=== PATIENT | male | born 1985 | race Two or more races ===

== ENCOUNTER 2025-02-26 15:31 | Emergency (ER) | payer SELFPAY ==
[2025-02-26 15:54] VITALS: BP 157/104; PULSE 108; RESP 18; TEMP 37.2; O2SAT 97; BMI 38.0
--- NOTE | 2025-02-26 16:06 | EDNOTE_ITS ---
ED Dental RME/HPI General Chief complaint: Dental/Oral/Throat Stated complaint: Right cheek swelling X 2 days, broken teeth Time Seen by Provider: 02/26/25 15:35 Arrival date/time: 02/26/25 15:31 RME / HPI RME / HPI Narrative: 39-year-old male patient was brought in for evaluation regarding right lower premolar dental cavity, and gumline swelling, associated with broken teeth and tenderness. Has been ongoing for the last 2 days. Patient told me that he had no insurance at this time and cannot see a dentist. Denies any fever denies any difficulty swallowing denies any other complaint. Able to open the mouth fully without any limitation Related Data Previous Rx's ?Medication ?Instructions ?Recorded Cyclobenzaprine * (FLEXERIL *) 10 mg PO Q8HR PRN muscl e spasm 04/08/14 #15 tabs amoxicillin 875 mg-potassium 1 tab PO BID #14 tabs clavulanate 125 mg tablet ibuprofen 800 mg tablet 800 mg PO Q8H PRN pain #30 t abs 02/26/25 Allergies Allergy/AdvReac Type Severity Reaction Status Date / Time NKA* Allergy Uncoded 02/26/25 15:38 Review of Systems Review of Systems Narrative Review of Systems: Review of system reviewed and within normal limits except mentioned in HPI ED Exam Narrative Physical exam: VITAL SIGNS: Reviewed. GENERAL APPEARANCE: Alert and interactive, follows commands, no acute distress, HEAD AND FACE: Non-traumatic. ENT: PERRL, pink conjunctivitis, eyelid no trauma, Mucous membrane moist. Right lower premolar with dental cavity and gumline swelling nonfluctuant with tenderness, uvula in the midline tonsils of the large NECK: Supple, nontender, no nuchal rigidity. CHEST: No tenderness, no crepitus, no paradoxical movement, no retractions. LUNGS: Clear, well ventilated, symmetric, no rales, no wheezing, no ronchi, no stridor, good breath sounds bilaterally. HEART: Regular rate, regular rhythm, no murmur, no gallops. ABDOMEN: Soft, positive bowel sounds, nondistended, no guarding, nontender, no rebound, no masses, RECTAL: Deferred. GENITAL: Deferred. NEUROLOGICAL: Gross motor function intact sensory function intact, Appropriate for age. MUSCULOSKELETAL: low back nontender, full range of motion. EXTREMITIES: Nontender, full range of motion. SKIN: Color pink, dry, no rash, no lacerations, no abrasions, no contusions. LYMPHATICS: Deferred. Course Quality Measures none Orders Category Date Time Status Amoxicillin/Pot Clav 875 [Augmentin 875] Med 02/26/25 16:05 Discontinued 1 tab PO X1 ONE Ketorolac Inj [Toradol Inj] Med 02/26/25 16:05 Discontinued 30 mg IM X1 ONE Vital Signs Vital signs: Vital Signs Temperature 99.0 F 02/26/25 15:54 Pulse Rate 108 H 02/26/25 15:54 Respiratory Rate 18 02/26/25 15:54 Blood Pressure 157/104 H 02/26/25 15:54 Pulse Oximetry (%) 97 02/26/25 15:54 Oxygen Delivery Method Room Air 02/26/25 15:54 Dental / Oral MDM Narrative MDM Narrative:: 39-year-old male patient was brought in for evaluation regarding right lower premolar dental cavity, and gumline swelling, associated with broken teeth and tenderness. Has been ongoing for the last 2 days. Patient told me that he had no insurance at this time and cannot see a dentist. Denies any fever denies any difficulty swallowing denies any other complaint. Able to open the mouth fully without any limitation Patient received Toradol IM and Augmentin. Patient was advised to see a dentist. I&D is not needed at this time patient stable for discharge home. Patient data External records reviewed:: None Clinical information provided by:: patient Social determinants that could affect healthcare access:: none Patient has the following chronic illnesses:: None How is presenting disease/condition affected by chronic disease/condition?: no chronic disease Evaluation data The following diagnostics were reviewed and interpreted by me:: other (specify) Lab and/or radiology exams considered but not ordered:: None Interpretation Summary: None Medications / Prescriptions Medications or Prescriptions considered but not ordered:: None Medication administrations:: Medication Administration History Discontinued Medications Amoxicillin/Clavulanate Potassium (Amoxicillin/Pot Clav 875 Tablet) 1 tab PO X1 ONE Stop: 02/26/25 16:06 Last Admin: 02/26/25 16:40 Dose: 1 tab Documented By: Ketorolac Tromethamine (Ketorolac Inj 30 Mg/Ml Vial) 30 mg IM X1 ONE Stop: 02/26/25 16:06 Last Admin: 02/26/25 16:40 Dose: 30 mg Documented By: Augmentin Toradol Consultations Consultation(s) initiated? (list below): No Diagnosis Dental Differential Diagnosis: dental caries, dental abscess and other (Infected dental caries) Most likely diagnosis given after review of the tests above:: Infected dental caries Admission Indicated Admission indicated?: not indicated Admission Request Was there a request for admission?: No Disposition Plan Disposition Plan: Discharge Discharge Attestation Discharge Attestation: The patient was given an opportunity to ask questions and understood the discharge instructions. Discharge instructions specifically effects, indications for sooner follow up or return to the emergency department, and the expected course of current diagnosis. Patient condition: Stable Discharge Plan Plan Patient Disposition: HOME (Self Care) Discharge Disposition comment: Stable Prescriptions/Referrals Prescriptions/Med Rec: New ibuprofen 800 mg tablet 800 mg PO Q8H PRN (Reason: pain) Qty: 30 0RF amoxicillin-pot clavulanate 875-125 mg tablet 1 tab PO BID Qty: 14 0RF No Action Cyclobenzaprine * (FLEXERIL *) 10 MG tablet 10 mg PO Q8HR PRN (Reason: muscle spasm ) Qty: 15 0RF Referrals: No Primary/Family,Physician [Primary Care Provider] - In 1 week Problem List Clinical Impression: Infected dental caries Patient/Caregiver Discharge Instructions Discharge Activity: activity as tolerated Education Materials: ED Abscess Antibiotic ... Additional Instructions: Thank you for the opportunity for serving you today. You are stable for discharged . You are advised to: Follow-up with your dentist in 1 to 2 days Return to ED for worsening of symptoms Increase oral fluids Take medication as prescribed Print Language: Icelandic Stand Alone Forms: Vy Award Info., Patient Portal Info Letter PA/[employer] Supervising Physician GUY/IMAN Supervising Physician: MD Iggy
[2025-02-26] MEDS: AMOXICILLIN/POT CLAV 875 TABLET 1 TAB PO (16:40)
[2025-02-26] MEDS: KETOROLAC INJ 30 MG/ML VIAL IM (16:40)
== END 2025-02-26 18:15 | disposition home or self-care (01) ==
PROVIDERS: Emergency Provider Emergency Medicine
DX: K04.7 Periapical abscess without sinus (principal)
CPT/HCPCS: 99283; 99284; J1885; A9270